=== PATIENT | female | born 2000 | race Caucasian/White ===

== ENCOUNTER 2019-01-09 07:51 | Emergency (ER) | payer BC, OTHER ==
[2019-01-09 08:02] VITALS: BP 108/55; PULSE 68
--- NOTE | 2019-01-09 08:16 | EDM.PDOC ---
ED HPI GENERAL MEDICAL PROBLEM - General Chief Complaint: Skin Complaint Stated Complaint: INFECTION ON LEG PER PATIENT Time Seen by Provider: 01/09/19 08:16 Source of Information: Reports: Patient, RN, RN Notes Reviewed History Limitations: Reports: No Limitations - History of Present Illness INITIAL COMMENTS - FREE TEXT/NARRATIVE: Pt c/o an area of increasing redness and tenderness to the right lower leg that began as an infected hair. She denies fever, chills, or drainage. She does not know if she has ever had MRSA or not. Onset: Gradual Duration: Day(s): (2), Constant, Getting Worse Location: Reports: Lower Extremity, Right Quality: Reports: Ache Severity: Mild Improves with: Reports: None Worsens with: Reports: None Associated Symptoms: Reports: No Other Symptoms Right Lower Leg Pain Score (Numeric/FACES): 6 - Related Data Allergies Allergy/AdvReac Type Severity Reaction Status Date / Time No Known Allergies Allergy Verified 06/25/13 13:22 Past Medical History - Past Health History Medical/Surgical History: Denies Medical/Surgical History Social & Family History - Tobacco Use Smoking Status *Q: Never Smoker - Caffeine Use Caffeine Use: Reports: Coffee Caffeine Use Comment: 10-12 oz daily - Recreational Drug Use Recreational Drug Use: No - Living Situation & Occupation Living situation: Reports: with Family Review of Systems - Review of Systems Review Of Systems: ROS reveals no pertinent complaints other than HPI. ED EXAM, GENERAL - Physical Exam Exam: See Below Exam Limited By: No Limitations General Appearance: Alert, WD/WN, No Apparent Distress Respiratory/Chest: No Respiratory Distress Cardiovascular: Normal Peripheral Pulses Extremities: Normal Range of Motion, No Pedal Edema, Redness (4cm x 5cm area of erythema with increased warmth and mild tenderness to the Rt anterior lower leg , no drainage, there is a central 0.5cm excoriated area ). No: Joint Swelling Neurological: Alert, Oriented, No Motor/Sensory Deficits Psychiatric: Normal Mood Course - Vital Signs Last Recorded V/S: Last Vital Signs Temp 97.2 F 01/09/19 07:58 Pulse 68 01/09/19 07:58 Resp 18 01/09/19 07:58 BP 108/55 L 01/09/19 07:58 Pulse Ox 100 01/09/19 07:58 Departure - Departure Time of Disposition: 08:21 Disposition: Home, Self-Care 01 Condition: Good Clinical Impression: Cellulitis of right lower leg - Discharge Information *PRESCRIPTION DRUG MONITORING PROGRAM REVIEWED*: No *COPY OF PRESCRIPTION DRUG MONITORING REPORT IN PATIENT AVEL: No Instructions: Cellulitis, Adult Forms: ED Department Discharge Additional Instructions: Rx: Clindamycin 300mg Rx: Bactroban Ointment 2% Follow up in clinic if not improving in 3 to 4 days.
== END 2019-01-09 08:35 | disposition home or self-care (01) ==
LOC: DL.ED 07:51
DX: L03.115 Cellulitis of right lower limb (principal)
CPT/HCPCS: 99283